=== PATIENT | female | born 1955 | race Caucasian/White ===

== ENCOUNTER 2018-05-10 09:27 | Day surgery (SDC) | payer OTHER ==
[2018-05-10] MEDS: TETRACAINE 0.5% 4 ML OPH OPER ×2 (11:28→15:18)
[2018-05-10] MEDS: TROPICAMIDE 1% 3 ML OPH OPER (11:28)
[2018-05-10] MEDS: BROMFENAC SODIUM 1.7 ML OPH DROP OPER (11:28)
[2018-05-10] MEDS: CYCLOPENTOLATE 2% 2 ML OPH OPER (11:28)
[2018-05-10] MEDS: PHENYLephrine 10% 5 ML OPH OPER (11:28)
[2018-05-10] MEDS: MOXIFLOXACIN 0.5% 3 ML OPH OPER (11:28)
[2018-05-10] MEDS ORDERED: hydrALAzine 20 MG INJ IV (12:30)
[2018-05-10] MEDS ORDERED: EPHEDrine SULFATE 50 MG/5 ML SYG IV (12:30)
[2018-05-10] MEDS ORDERED: morphine (1 MG/ML) 10ML SYRINGE IV (12:30)
[2018-05-10] MEDS ORDERED: ALBUTEROL 0.083% (NEB) 2.5 MG/3 ML AMP HHN (12:30)
[2018-05-10] MEDS ORDERED: LABETALOL HCL 20MG INJ IV (12:30)
[2018-05-10] MEDS ORDERED: ATROPINE 1 MG/10 ML SYRINGE IV (12:30)
[2018-05-10] MEDS ORDERED: OXYCODONE/ACETAMINOPHEN (5/325) TAB PO (12:30)
[2018-05-10] MEDS ORDERED: ONDANSETRON 4 MG INJ IV (12:30)
[2018-05-10] MEDS ORDERED: DIPHENHYDRAMINE 50 MG INJ IV (12:30)
[2018-05-10] MEDS ORDERED: FENTAnyl 50 MCG/ML VIAL IV (12:30)
[2018-05-10] MEDS ORDERED: HYDROmorphONE 1 MG/5 ML IV SYRINGE IV (12:30)
[2018-05-10] MEDS ORDERED: LIDOCAINE 3.5% GEL TUBE (13:52)
[2018-05-10] MEDS: LIDOCAINE 3.5% GEL TUBE OPER (13:53)
[2018-05-10] MEDS ORDERED: TOBRAMYCIN/DEXAMETH 3.5 GM OPH OINT (14:28)
[2018-05-10] MEDS ORDERED: TRYPAN BLUE 0.5 ML SYG IO (14:29)
[2018-05-10] MEDS ORDERED: CEFAZOLIN 1 GM INJ (14:43)
[2018-05-10] MEDS: LIDOCAINE 1%/EPI 30 ML INJ INJ (15:18)
[2018-05-10] MEDS: LACTATED RINGER'S 1,000 ML IV (15:50)
== END 2018-05-10 16:50 | disposition home or self-care (01) ==
LOC: SDS 09:27
DX: H25.22 Age-related cataract, morgagnian type, left eye (principal); I10 Essential (primary) hypertension; E03.9 Hypothyroidism, unspecified; Z79.01 Long term (current) use of anticoagulants; I48.2 Chronic atrial fibrillation
CPT/HCPCS: 66984